=== PATIENT | female | born 1950 | race Caucasian/White ===

== ENCOUNTER 2017-06-13 11:41 | Inpatient (IN) | payer MEDICARE, MEDICAID ==
[~2017-06-13] VITALS: Ht 160 cm; Wt 103.3 kg
[2017-06-13 13:03] LABS: Basophils # (auto) 0 uL; Basophils % (auto) 0.4 % (0.0-2.0); Eosinophils # (auto) 0 uL; Hematocrit 33.6 % (36.0-46.0); Hemoglobin 10.8 g/dL (12.2-16.2); Lymphocytes # (auto) 0.5 uL; Lymphocytes % (auto) 7.5 % (10.0-50.0); Mean Corpuscular Hemoglobin 31.3 pg (28.0-32.0); Mean Corpuscular Hgb Conc. 32.2 g/dL (32.0-36.0); Mean Corpuscular Volume 97.2 fL (80.0-100.0); Monocytes # (auto) 0.5 uL; Neutrophils # (auto) 5.9 uL; Neutrophils % (auto) 85.1 % (37.0-80.0); Nucleated Red Blood Cells % 0.1 %; Platelet Count (auto) 106 10^3/uL (140-450); Red Blood Cells 3.46 10^6/uL (4.0-5.20); Red Cell Distribution Width 17.6 % (11.8-14.3); White Blood Cell 6.9 10^3/uL (4.4-10.8)
[2017-06-13 13:24] LABS: Alanine Aminotransferase 23 U/L (13-56); Albumin 3.2 g/dL (3.4-5.0); Anion Gap 7 (5-15); Aspartate Aminotransferase 15 U/L (15-37); BUN/Creatinine Ratio 19.5; Blood Urea Nitrogen 25 mg/dL (7-18); Calcium 9.1 mg/dL (8.5-10.1); Carbon Dioxide 34 mmol/L (21-32); Chloride 96 mmol/L (98-107); GFR African American 53 mL/min; GFR Non-African American 44 mL/min; Glucose 242 mg/dL (74-106); Potassium 4.1 mmol/L (3.5-5.1); Sodium 137 mmol/L (136-145)
[2017-06-13 13:26] LABS: Lactic Acid w/Reflex 2.5 mmol/L (0.4-2.0)
[2017-06-13 13:28] LABS: Alkaline Phosphatase 77 U/L (45-117); Bilirubin, Total 0.9 mg/dL (0.2-1.0); Total Protein 6.6 g/dL (6.4-8.2)
[2017-06-13 14:22] LABS: INR 0.97 (0.9-1.15); Partial Thromboplastin Time 34.8 sec (22.64-33.71); Prothrombin Time 10.6 sec (9.37-12.3)
[2017-06-13] MEDS ORDERED: VANCOMYCIN 1GM/250ML 250 ML IV ONE (14:30)
[2017-06-13] MEDS ORDERED: FUROSEMIDE 40 MG/4 ML VIAL IV ONE (14:30)
[2017-06-13] MEDS ORDERED: ONDANSETRON HCL 4 MG/2 ML VIAL IV PRN (16:30)
[2017-06-13] MEDS ORDERED: DEXTROSE (50%) 50ML SYRG IV PRN (16:30)
[2017-06-13] MEDS ORDERED: MORPHINE SULFATE 4 MG/ML SYR/VIAL IV PRN (16:30)
[2017-06-13] MEDS ORDERED: HYDROcodone-ACET 5/325MG TAB PO PRN (16:30)
[2017-06-13] MEDS ORDERED: ENOXAPARIN SOD 40 MG/0.4 ML SYRINGE SC SCH (16:39)
[2017-06-13] MEDS ORDERED: LEVOFLOXACIN 500MG 100 ML IV ONE (16:45)
[2017-06-13] MEDS ORDERED: METOPROLOL TARTRATE 25 MG TAB PO ONE (16:45)
[2017-06-13] MEDS ORDERED: ENOXAPARIN SOD 120 MG/0.8 ML SYRINGE SC ONE (17:00)
[2017-06-13 17:35] VITALS: BP 118/59
[2017-06-13] MEDS: IPRATROPIUM BROM 0.5 MG/2.5ML INH SOL NEB SCH (18:00)
[2017-06-13] MEDS: ALBUTEROL SULF 2.5 MG/0.5ML(0.5%) NEB SOLN NEB SCH (18:00)
[2017-06-13] MEDS ORDERED: AMIODARONE HCL 900 MG in DEXTROSE 500 ML IV SCH (18:12)
[2017-06-13] MEDS ORDERED: AMIODARONE HCL 150 MG in D5W 5% 100 ML IV ONE (18:15)
[2017-06-13] MEDS: PANTOPRAZOLE 40 MG TAB PO SCH (18:21)
[2017-06-13] MEDS: predniSONE 5 MG TAB PO SCH (18:21)
[2017-06-13] MEDS: ACCU-CHEK COMFORT CURVE STRIP VI SCH ×2 (18:34→22:03)
[2017-06-13] MEDS: InsuLIN REG 1unit/0.01ml Soln (100units/ml) SC SCH ×2 (18:59→22:03)
[2017-06-13 20:47] LABS: Urine Bacteria NONE SEEN /hpf (None Seen); Urine Blood 1+ /uL (Negative); Urine Hyaline Cast FEW /lpf (0 - 2); Urine Mucus FEW (None Seen); Urine Specific Gravity 1.011 (1.001-1.035); Urine WBC <1 /hpf (0 - 5)
[2017-06-13 20:50] VITALS: BP 104/70
[2017-06-13] MEDS: ATORVASTATIN 20 MG TAB PO SCH (22:02)
[2017-06-13] MEDS: METOPROLOL TARTRATE 25 MG TAB PO SCH (22:03)
[2017-06-13] MEDS ORDERED: OLAN5TAB30 PO (23:20)
[2017-06-13] MEDS ORDERED: OMEP20CA74 PO (23:20)
[2017-06-13] MEDS ORDERED: PRO10T PO (23:20)
[2017-06-13] MEDS ORDERED: PRE5T PO (23:20)
[2017-06-13] MEDS ORDERED: SERT-274 PO (23:20)
[2017-06-13] MEDS ORDERED: PRO125RS PO (23:20)
[2017-06-13] MEDS ORDERED: MORP15TA PO (23:20)
[2017-06-13] MEDS ORDERED: BUDE2SUS3 IN (23:20)
[2017-06-13] MEDS ORDERED: METF-370 PO (23:20)
[2017-06-13] MEDS ORDERED: FERR-20 PO (23:20)
[2017-06-13] MEDS ORDERED: ALBUAER3 IN (23:20)
[2017-06-13] MEDS ORDERED: MAGN400T5 PO (23:20)
[2017-06-13] MEDS ORDERED: FURO40TA PO (23:20)
[2017-06-13] MEDS ORDERED: CETI10TA80 PO (23:20)
[2017-06-13] MEDS ORDERED: ATOR20TA50 PO (23:20)
[2017-06-13] MEDS ORDERED: DOCU100T15 PO (23:20)
[2017-06-14] VITALS (8 sets, daily range): BP systolic 104–119; BP diastolic 53–78
[2017-06-14] MEDS: AMIODARONE HCL 900 MG in DEXTROSE 500 ML IV SCH ×2 (01:01→17:25)
[2017-06-14 05:45] LABS: BUN/Creatinine Ratio 21.6; Calcium 9.2 mg/dL (8.5-10.1); Potassium 3.8 mmol/L (3.5-5.1)
[2017-06-14] MEDS: ENOXAPARIN SOD 120 MG/0.8 ML SYRINGE SC SCH ×2 (06:12→18:58)
[2017-06-14] MEDS: IPRATROPIUM BROM 0.5 MG/2.5ML INH SOL NEB SCH ×4 (06:17→19:25)
[2017-06-14] MEDS: ALBUTEROL SULF 2.5 MG/0.5ML(0.5%) NEB SOLN NEB SCH ×5 (06:17→19:28)
[2017-06-14] MEDS: ACCU-CHEK COMFORT CURVE STRIP VI SCH ×4 (06:19→21:58)
[2017-06-14] MEDS: InsuLIN REG 1unit/0.01ml Soln (100units/ml) SC SCH ×4 (06:19→21:57)
[2017-06-14] MEDS ORDERED: FUROSEMIDE 40 MG/4 ML VIAL IV SCH (10:00)
[2017-06-14] MEDS: LEVOFLOXACIN 500MG 100 ML IV SCH (10:44)
[2017-06-14] MEDS: predniSONE 5 MG TAB PO SCH (10:44)
[2017-06-14] MEDS: PANTOPRAZOLE 40 MG TAB PO SCH (10:45)
[2017-06-14] MEDS: SERTRALINE HCL 50 MG TAB PO SCH (10:45)
[2017-06-14] MEDS: METOPROLOL TARTRATE 25 MG TAB PO SCH ×2 (10:45→21:57)
[2017-06-14] MEDS: ATORVASTATIN 20 MG TAB PO SCH (21:57)
[2017-06-15] VITALS (22 sets, daily range): BP systolic 92–167; BP diastolic 53–85
[2017-06-15 05:49] LABS: Basophils # (auto) 0 uL; Basophils % (auto) 0.4 % (0.0-2.0); Eosinophils # (auto) 0 uL; Eosinophils % (auto) 0.3 % (0.0-7.0); Lymphocytes % (auto) 19.1 % (10.0-50.0); Mean Corpuscular Hemoglobin 31.1 pg (28.0-32.0); Mean Corpuscular Hgb Conc. 32.2 g/dL (32.0-36.0); Mean Corpuscular Volume 96.6 fL (80.0-100.0); Monocytes # (auto) 0.6 uL; Monocytes % (auto) 11.9 % (0.0-12.0); Neutrophils # (auto) 3.4 uL; Neutrophils % (auto) 68.3 % (37.0-80.0); Nucleated Red Blood Cells % 0.7 %; Platelet Count (auto) 87 10^3/uL (140-450); Red Blood Cells 3.21 10^6/uL (4.0-5.20); Red Cell Distribution Width 17.6 % (11.8-14.3)
[2017-06-15] MEDS: ENOXAPARIN SOD 120 MG/0.8 ML SYRINGE SC SCH ×2 (06:00→17:34)
[2017-06-15 06:03] LABS: BUN/Creatinine Ratio 21.8; Calcium 8.9 mg/dL (8.5-10.1)
[2017-06-15] MEDS ORDERED: POTASSIUM CHL 20 Meq TABLET PO ONE ×2 (06:30→09:45)
[2017-06-15] MEDS: ALBUTEROL SULF 2.5 MG/0.5ML(0.5%) NEB SOLN NEB SCH ×2 (06:49)
[2017-06-15] MEDS: IPRATROPIUM BROM 0.5 MG/2.5ML INH SOL NEB SCH ×5 (06:49→23:57)
[2017-06-15] MEDS: InsuLIN REG 1unit/0.01ml Soln (100units/ml) SC SCH ×4 (06:51→22:12)
[2017-06-15] MEDS: ACCU-CHEK COMFORT CURVE STRIP VI SCH ×4 (06:52→22:12)
[2017-06-15] MEDS ORDERED: FUROSEMIDE 40 MG TAB PO SCH (10:00)
[2017-06-15] MEDS: METOPROLOL TARTRATE 25 MG TAB PO SCH ×2 (10:00→22:00)
[2017-06-15] MEDS ORDERED: POTASSIUM CHL 20 Meq TABLET PO SCH (10:00)
[2017-06-15] MEDS ORDERED: AMIODARONE HCL 150 MG in D5W 5% 100 ML IV ONE ×2 (10:15→10:30)
[2017-06-15] MEDS: LEVOFLOXACIN 500MG 100 ML IV SCH (10:52)
[2017-06-15] MEDS: predniSONE 5 MG TAB PO SCH (10:53)
[2017-06-15] MEDS: PANTOPRAZOLE 40 MG TAB PO SCH (10:53)
[2017-06-15] MEDS: SERTRALINE HCL 50 MG TAB PO SCH (10:54)
[2017-06-15] MEDS: FUROSEMIDE 40 MG/4 ML VIAL IV SCH ×2 (10:57→17:34)
[2017-06-15] MEDS ORDERED: POTASSIUM CHL 10% (20 MEQ/15ML) 15ml ORAL SOLN PO ONE (12:00)
[2017-06-15] MEDS ORDERED: AMIODARONE HCL 900 MG in DEXTROSE 500 ML IV SCH (16:13)
[2017-06-15] MEDS: ATORVASTATIN 20 MG TAB PO SCH (22:12)
[2017-06-16] VITALS (8 sets, daily range): BP systolic 108–143; BP diastolic 51–79
[2017-06-16] MEDS: IPRATROPIUM BROM 0.5 MG/2.5ML INH SOL NEB SCH ×3 (05:55→18:24)
[2017-06-16] MEDS: ENOXAPARIN SOD 120 MG/0.8 ML SYRINGE SC SCH (06:00)
[2017-06-16] MEDS: FUROSEMIDE 40 MG/4 ML VIAL IV SCH (06:01)
[2017-06-16 06:47] LABS: Calcium 8.8 mg/dL (8.5-10.1); Magnesium 1.9 mg/dL (1.6-2.6); Potassium 3.4 mmol/L (3.5-5.1)
[2017-06-16 06:49] LABS: BUN/Creatinine Ratio 19.9
[2017-06-16] MEDS: InsuLIN REG 1unit/0.01ml Soln (100units/ml) SC SCH ×4 (07:12→22:10)
[2017-06-16] MEDS: ACCU-CHEK COMFORT CURVE STRIP VI SCH ×4 (07:12→22:09)
[2017-06-16] MEDS ORDERED: POTASSIUM CHL 20 Meq TABLET PO ONE (10:30)
[2017-06-16] MEDS ORDERED: POTASSIUM CHL 10% (20 MEQ/15ML) 15ml ORAL SOLN PO ONE (10:45)
[2017-06-16] MEDS: LEVOFLOXACIN 500MG 100 ML IV SCH (10:46)
[2017-06-16] MEDS: predniSONE 5 MG TAB PO SCH (10:47)
[2017-06-16] MEDS: PANTOPRAZOLE 40 MG TAB PO SCH (10:47)
[2017-06-16] MEDS: SERTRALINE HCL 50 MG TAB PO SCH (10:47)
[2017-06-16] MEDS: AMIODARONE HCL 200 MG TAB PO SCH ×2 (10:47→22:08)
[2017-06-16 14:17] LABS: Basophils # (auto) 0 uL; Basophils % (auto) 0.4 % (0.0-2.0); Eosinophils # (auto) 0 uL; Eosinophils % (auto) 0.1 % (0.0-7.0); Hematocrit 34.5 % (36.0-46.0); Hemoglobin 10.9 g/dL (12.2-16.2); Lymphocytes # (auto) 0.6 uL; Lymphocytes % (auto) 11.4 % (10.0-50.0); Mean Corpuscular Hemoglobin 30.7 pg (28.0-32.0); Mean Corpuscular Hgb Conc. 31.6 g/dL (32.0-36.0); Monocytes # (auto) 0.5 uL; Monocytes % (auto) 9.1 % (0.0-12.0); Neutrophils # (auto) 4.1 uL; Nucleated Red Blood Cells % 0.1 %; Platelet Count (auto) 87 10^3/uL (140-450); Red Blood Cells 3.56 10^6/uL (4.0-5.20); Red Cell Distribution Width 17.8 % (11.8-14.3); White Blood Cell 5.2 10^3/uL (4.4-10.8)
[2017-06-16] MEDS: FUROSEMIDE 40 MG TAB PO SCH (17:58)
[2017-06-16] MEDS ORDERED: ENOXAPARIN SOD 100 MG/1 ML SYRINGE SC SCH (18:00)
[2017-06-16] MEDS: BUDESONIDE (INHALATION) 0.5 MG/2 ML NEB NEB SCH (18:24)
[2017-06-16] MEDS: ATORVASTATIN 20 MG TAB PO SCH (22:08)
[2017-06-16] MEDS: METOPROLOL TARTRATE 25 MG TAB PO SCH (22:09)
[2017-06-17] MEDS: IPRATROPIUM BROM 0.5 MG/2.5ML INH SOL NEB SCH ×3 (01:35→11:24)
[2017-06-17 05:00] VITALS: BP 125/66
[2017-06-17] MEDS: FUROSEMIDE 40 MG TAB PO SCH (06:26)
[2017-06-17] MEDS: ACCU-CHEK COMFORT CURVE STRIP VI SCH ×2 (06:27→11:32)
[2017-06-17] MEDS: InsuLIN REG 1unit/0.01ml Soln (100units/ml) SC SCH ×2 (06:27→12:05)
[2017-06-17] MEDS: BUDESONIDE (INHALATION) 0.5 MG/2 ML NEB NEB SCH (06:31)
[2017-06-17 07:34] LABS: Basophils # (auto) 0 uL; Basophils % (auto) 0.1 % (0.0-2.0); Eosinophils # (auto) 0 uL; Eosinophils % (auto) 0.3 % (0.0-7.0); Hematocrit 33.1 % (36.0-46.0); Hemoglobin 10.7 g/dL (12.2-16.2); Lymphocytes # (auto) 0.9 uL; Lymphocytes % (auto) 19.2 % (10.0-50.0); Mean Corpuscular Hemoglobin 31.2 pg (28.0-32.0); Mean Corpuscular Hgb Conc. 32.3 g/dL (32.0-36.0); Mean Corpuscular Volume 96.6 fL (80.0-100.0); Monocytes # (auto) 0.6 uL; Monocytes % (auto) 13.2 % (0.0-12.0); Neutrophils # (auto) 3.3 uL; Neutrophils % (auto) 67.2 % (37.0-80.0); Nucleated Red Blood Cells % 0.2 %; Platelet Count (auto) 78 10^3/uL (140-450); Red Blood Cells 3.43 10^6/uL (4.0-5.20); Red Cell Distribution Width 17.9 % (11.8-14.3); White Blood Cell 4.9 10^3/uL (4.4-10.8)
[2017-06-17 07:45] LABS: BUN/Creatinine Ratio 14.4; Magnesium 1.7 mg/dL (1.6-2.6); Potassium 3.5 mmol/L (3.5-5.1)
[2017-06-17 08:17] VITALS: BP 115/69
[2017-06-17] MEDS: predniSONE 5 MG TAB PO SCH (09:40)
[2017-06-17] MEDS: PANTOPRAZOLE 40 MG TAB PO SCH (09:40)
[2017-06-17] MEDS: SERTRALINE HCL 50 MG TAB PO SCH (09:40)
[2017-06-17] MEDS ORDERED: ENOXAPARIN SOD 40 MG/0.4 ML SYRINGE SC SCH (10:00)
[2017-06-17] MEDS: AMIODARONE HCL 200 MG TAB PO SCH (10:05)
[2017-06-17] MEDS: METOPROLOL TARTRATE 25 MG TAB PO SCH (10:06)
[2017-06-17 11:55] VITALS: BP 125/59
== END 2017-06-17 17:28 | disposition home or self-care (01) | DRG 291 ==
LOC: ER 11:41 → TELE 11:42 → DOU IN ICU 21:16 → TELE-EAST 06-16 23:02
PROVIDERS: ADMIT Internal Medicine; ATTEND Internal Medicine
DX: I13.0 Hypertensive heart and chronic kidney disease with heart failure and stage 1 through stage 4 chronic kidney disease, or unspecified chronic kidney disease (principal); I50.43 Acute on chronic combined systolic (congestive) and diastolic (congestive) heart failure; J96.20 Acute and chronic respiratory failure, unspecified whether with hypoxia or hypercapnia; E87.2 Acidosis; E11.22 Type 2 diabetes mellitus with diabetic chronic kidney disease; C78.00 Secondary malignant neoplasm of unspecified lung; I48.91 Unspecified atrial fibrillation; E66.01 Morbid (severe) obesity due to excess calories; Z99.81 Dependence on supplemental oxygen; J44.1 Chronic obstructive pulmonary disease with (acute) exacerbation; Z68.41 Body mass index [BMI] 40.0-44.9, adult; J44.9 Chronic obstructive pulmonary disease, unspecified; F32.9 Major depressive disorder, single episode, unspecified; N18.3 Chronic kidney disease, stage 3 (moderate); Z82.49 Family history of ischemic heart disease and other diseases of the circulatory system; Z83.3 Family history of diabetes mellitus; Z85.118 Personal history of other malignant neoplasm of bronchus and lung; Z87.891 Personal history of nicotine dependence; Z88.0 Allergy status to penicillin; Z79.899 Other long term (current) drug therapy; Z85.841 Personal history of malignant neoplasm of brain; Z71.3 Dietary counseling and surveillance
CPT/HCPCS: 36415; 36600; 71045; 80048; 80053; 81001; 82805; 82962; 83036; 83605; 83735; 83880; 84443; 84484; 85025; 85610; 85730; 87040; 87081; 93005; 93306; 93970; 94640; 96365; 96372; 96375; 97163; J1815; J1956; J7060